=== PATIENT | female | born 1955 | race Caucasian/White ===

== ENCOUNTER 2023-04-24 15:27 | Emergency (ER) | payer MEDICARE ==
[~2023-04-24] VITALS: Ht 149.9 cm; Wt 89.4 kg
[~2023-04-24 15:27] MED LIST: ALBU2.5V13 NEB; ALPR0.5T9 PO; BUDE0.5A11 IH; BUSP15TA7 PO; CALC-1099; CHOL100025 PO; CITA20TA28 PO; CROM40SP BOTHNARES; FAMO20TA8 PO; GABA-530 PO; KETO10TA2 PO; LEVO75TA7 PO; TRIA50CA2; ZINC25CA PO
[2023-04-24 16:02] VITALS: TEMP 98
[2023-04-24 16:38] LABS: BASOPHILS # (AUTO) 0.1 X10'3 (0-0.2); EOSINOPHILS # (AUTO) 0.3 X10'3 (0-0.9); EOSINOPHILS % (AUTO) 4.8 % (0-6); HEMATOCRIT 42.8 % (35.0-45.0); HEMOGLOBIN 14.4 g/dl (12.0-16.0); LYMPHOCYTES # (AUTO) 1.1 X10'3 (1.1-4.8); LYMPHOCYTES % (AUTO) 16.2 % (21-51); MEAN CORPUSCULAR HEMOGLOBIN 30.8 PG (27.0-31.0); MEAN CORPUSCULAR HGB CONC 33.8 g/dL (33.0-36.5); MEAN CORPUSCULAR VOLUME 91.2 FL (78-98); MEAN PLATELET VOLUME 9.1 FL (7.4-10.4); MONOCYTES # (AUTO) 0.4 X10'3 (0-0.9); MONOCYTES % (AUTO) 5.1 % (2-12); NEUTROPHILS # (AUTO) 5.1 X10'3 (1.8-7.7); NEUTROPHILS % (AUTO) 72.9 % (42-75); PLATELET COUNT 304 X10'3 (140-440); RED BLOOD COUNT 4.69 X10'6 (4.20-5.60); RED CELL DISTRIBUTION WIDTH 12.9 % (11.5-14.5)
[2023-04-24 16:44] LABS: ANION GAP 8 (8-16); BLOOD UREA NITROGEN 18 MG/DL (7-18); BUN/CREATININE RATIO 16.8 (10.0-20.0); CALCIUM 9.3 MG/DL (8.5-10.1); CHLORIDE 101 MMOL/L (99-107); CREATININE 1.07 MG/DL (0.40-0.90); GLUCOSE 103 MG/DL (70-104); POTASSIUM 4.3 MMOL/L (3.5-5.1); PRO BRAIN NATRIURETIC PEPTIDE 41 PG/ML (0-125); SODIUM 139 MMOL/L (135-145); TOTAL CARBON DIOXIDE 30.3 MMOL/L (24-32); eCRCL 36 ML/MIN; eGFR 51 ML/MIN
[2023-04-24] MEDS: cloNIDine 0.1 mg tablet PO SCH (20:03)
[2023-04-24] MEDS ORDERED: cloNIDine 0.1 mg tablet PO ONE (20:05)
[2023-04-24] MEDS: cloNIDine 0.1 mg tablet PO ONE (21:29)
[2023-04-24 22:46] VITALS: BP 159/91; PULSE 64; RESP 16; O2SAT 97
== END 2023-04-24 22:47 | disposition home or self-care (01) ==
LOC: ER 15:28
DX: I10 Essential (primary) hypertension (principal); Z88.6 Allergy status to analgesic agent; Z88.1 Allergy status to other antibiotic agents; Z91.09 Other allergy status, other than to drugs and biological substances; Z79.899 Other long term (current) drug therapy; Z79.1 Long term (current) use of non-steroidal anti-inflammatories (NSAID)
CPT/HCPCS: 36415; 71045; 80048; 83880; 84484; 85025; 93005; 99285